=== PATIENT | male | born 1940 | race Caucasian/White ===

== ENCOUNTER 2018-09-26 10:43 | Outpatient (CLI) | payer OTHER, MEDICARE, SELFPAY ==
[2018-09-26] VITALS (8 sets, daily range): BP systolic 106–147; BP diastolic 62–77; PULSE 64–81; RESP 16; TEMP 36.5; O2SAT 96–97
--- NOTE | 2018-09-26 10:50 | DI.RAD.S_ITS ---
PROCEDURE: PAIN L INTERLAMINAR/CAUDAL INJ INDICATIONS: SPINAL STENOSIS FINDINGS: Fluoroscopic spot filming was performed to verify placement of spinal needles as labeled on the films. Appropriate location(s) of the needle tip(s) was confirmed by injection of iodinated contrast. IMPRESSION: Fluoroscopy for pain management. Dictated by: Damian Nicholas M.D. on 09/26/2018 at 12:40 Approved by: Damian Nicholas M.D. on 09/26/2018 at 12:40
[2018-09-26] MEDS: MIDAZOLAM 5 MG/5 ML VIAL IV (11:29)
[2018-09-26] MEDS: BETAMETHASONE 30 MG/5 ML MDV 12 MG INJ (11:33)
[2018-09-26] MEDS: BUPIVACAINE 0.5% (PF) VIAL 2 ML INJ (11:33)
[2018-09-26] MEDS: IOPAMIDOL 15 ML VIAL 3 ML INJ (11:33)
[2018-09-26] MEDS: DEXAMETHASONE 10 MG/ML VIAL 20 MG INJ (11:33)
--- NOTE | 2018-09-26 11:39 | PM.PROC.1 ---
Procedures Date/Time Date of procedure: 09/26/18 Time of procedure: 11:39 General Procedure description: PROVIDER: Jared Maurer DO Operative Note PREOP DIAGNOSIS 1. HNP WITH RADICULAR FEATURES, 2. MULTILEVEL CENTRAL STENOSIS, POST OP DIAGNOSIS 1. HNP WITH RADICULAR FEATURES, 2. MULTILEVEL CENTRAL STENOSIS, PROCEDURES 1. FLUORSCOPICALLY GUIDED CONTRAST CONTROLLED INTERLAMINAR EPIDURAL STEROID INJECTION - L5/S1 PHYSICIAN: Jared Maurer DO INDICATIONS [place] is referred by Dr. Shelton and Yunior for treatment of Bilateral Foraminal Stenosis L>R LE symptoms. FINDINGS Multilevel Central Spinal Stenosis with Nerve Root Compression DESCRIPTION OF PROCEDURE Fluoroscopically guided, contrast-controlled L5/S1 translaminar epidural steroid injection. Following review of allergy and review of potential side effects and complications, including, but not necessarily limited to, infection, allergic reaction, local tissue breakdown, temporary as well as permanent nerve injury, paralysis, stroke and possible , the patient indicated that the patient understood and agreed to proceed. An informed consent document was signed by the patient, witnessed by a nurse, and placed in the patient's chart. Additionally, other treatment options including modalities, medications, and physical therapy were reviewed with the patient. After review of previous anaesthesic history and IV conscious sedation the patient was deemed safe to proceed with todays procedure with IV conscious sedation as ASA class II designation. Safety time-out was performed to confirm patient ID, procedure to be performed and site of procedure. IV sedation was accomplished with a combination of 2mg of Versed administered by the RN after DO order, titrated to patient comfort during the course of the procedure while the patient remained responsive to all verbal commands. In the prone position, following sterile prep and drape of the lumbar region, the L5/S1 translaminar space was identified fluoroscopically. The skin was anesthetized via a 25-gauge, 1.5-inch needle with 1% lidocaine solution. At this point, a 22-gauge short bevel spinal needle was atraumatically introduced and advanced under fluoroscopic guidance into the region of the L5/S1 translaminar space. Depth was confirmed on lateral view. Radiological data, including multiple fluoroscopic views of the lumbar spine, reveal a spinal needle at the L5/S1 translaminar space. Lateral views then show placement of the needle in the epidural space. Subsequent views show contrast material flowing superiorly and inferiorly in the epidural space. No vascular or intrathecal uptake is observed. At this point, using loss of resistance technique with saline and air, the epidural space was entered. This was confirmed following negative aspiration with injection of approximately 1.5 cc of Isovue 200, showing excellent epidural flow without vascular or intrathecal uptake. At this point, 1 cc of 1% lidocaine solution combined with 3cc or 20mg of dexamethasone and 6mg of betamethasone was injected without incident. The patent tolerated the procedure without signs of symptoms of complications prior to transfer to the recovery area for further monitoring. The patient was then transferred to the recovery area where they were observed for an appropriate period of time after the injection. The patient reported a VAS score of 6 prior to the procedure and a post-procedure VAS of 0. Total Fluoroscopy Time: 11.8 seconds Total Conscious Sedation Time: 24min POST OP INSTRUCTIONS The patient was provided a Pain Log to continue to record their response to the target-specific procedure prior to follow-up visit with their referring physician. Additionally, specific post-injection care instructions and a contact number to our office were provided if concerns arise regarding possible complications associated with the procedure are suspected. Jared Maurer DO Complications: none
--- NOTE | 2018-09-26 11:40 | PC.NURSE ---
Pt returned awake and alert post procedure, able to move from W/C to chair with standby assist. Resumed monitoring from Serene LOMAS.
== END 2018-09-26 12:17 ==
LOC: RAD 10:49
PROVIDERS: Visit Provider Physical Medicine & Rehabilitation
DX: M51.27 Other intervertebral disc displacement, lumbosacral region (principal); M48.07 Spinal stenosis, lumbosacral region; M54.17 Radiculopathy, lumbosacral region
CPT/HCPCS: 62323; 99152; J0702; J1100; J2250; J3010

== ENCOUNTER 2019-02-08 10:20 | Outpatient (CLI) | payer OTHER, MEDICARE, SELFPAY ==
[2019-02-08] VITALS (7 sets, daily range): BP systolic 105–149; BP diastolic 60–89; PULSE 60–68; RESP 16–18; TEMP 36.1; O2SAT 96–98
--- NOTE | 2019-02-08 10:25 | DI.RAD.S_ITS ---
PROCEDURE: PAIN L INTERLAMINAR/CAUDAL INJ INDICATIONS: SPONDYLOSIS FINDINGS: Fluoroscopic spot filming was performed to verify placement of spinal needles at the L5-S1 level(s), as labeled on the films. Appropriate location(s) of the needle tip(s) was confirmed by injection of iodinated contrast. Dictated by: Tayo Lim M.D. on 02/08/2019 at 14:52 Approved by: Tayo Lim M.D. on 02/08/2019 at 14:53
[2019-02-08] MEDS: MIDAZOLAM 5 MG/5 ML VIAL IV (12:00)
[2019-02-08] MEDS: BUPIVACAINE 0.25% (PF) VIAL 2 ML INJ (12:09)
[2019-02-08] MEDS: IOPAMIDOL 15 ML VIAL 3 ML INJ (12:09)
[2019-02-08] MEDS: BETAMETHASONE 30 MG/5 ML MDV 6 MG INJ (12:09)
--- NOTE | 2019-02-08 12:13 | PC.NURSE ---
ASSISTING PT OFF TABLE AND TRANSPORTING TO POST PROC AREA IN STABLE CONDITION.
--- NOTE | 2019-02-08 12:20 | P.PCN_ITS ---
Procedures Date/Time Date of procedure: 02/08/19 Time of procedure: 12:20 General Procedure description: PREOP DIAGNOSIS 1. FORMAINAL STENOSIS WITH LE SYMPTOMS POST OP DIAGNOSIS 1. FORMAINAL STENOSIS WITH LE SYMPTOMS PROCEDURES 1. FLUOROSCOPICALLY GUIDED CONTRAST CONTROLLED TRANSFORAMINAL EPIDURAL STEROID INJECTION - Left L5/S1 PHYSICIAN: Jared Maurer DO INDICATIONS: [place] is referred by Dr. Mojica for treatment of Foraminal Stenosis with Left LE Symptoms FINDINGS Foraminal Nerve Root Compression secondary to disc disease and facet hypertrophy DESCRIPTION OF PROCEDURE: Following review of allergy and review of potential side effects and complications, including, but not necessarily limited to, infection, allergic reaction, local tissue breakdown, stroke, temporary or permanent nerve injury, paralysis, and possible , the patient indicated that the patient understood and agreed to proceed. An informed consent document was signed by the patient, witnessed by a nurse, and placed in the patient's chart. Additionally, other treatment options including medications, modalities, and physical therapy were reviewed with the patient. After review of previous anaesthesic history and IV conscious sedation the pat ient was deemed safe to proceed with todays procedure with IV conscious sedation as ASA class II designation. Safety time-out was performed to confirm patient ID, procedure to be performed and site of procedure. IV sedation was accomplished with a combination of 2mg of Versed was administered by the RN after DO order, titrated to patient comfort during the course of the procedure while the patient remained responsive to all verbal commands In the prone position following sterile prep and drape of the lumbar region, the left L5/S1 posterior neuroforamen was identified fluoroscopically. The skin was anesthetized via a 25-gauge 1.5-inch needle with 1% lidocaine solution. At this point, a 25-gauge 3.5-inch spinal needle was atraumatically introduced and advanced under fluoroscopic guidance through the posterior left L5/S1 neuroforamen to approximately the anterior aspect of the canal. Depth was confirmed on lateral view. Following negative aspiration, injection of approximately 1.5cc of Isovue 200 under live fluoroscopy in the AP view confirmed excellent flow along the nerve root, into the epidural space without vascular or intrathecal uptake observed. Radiological data, including multiple fluoroscopic views of the lumbosacral spine, reveal a spinal needle at the Left L5/S1 posterior neuroforamen. Subsequent views show flow of contrast material flowing superiorly and infe riorly along the nerve root confirming epidural flow. Subsequently, a test dose of 1.5cc of 1% lidocaine solution was administered and patient was observed for two minutes for signs or symptoms of complications, including abdominal pain, shortness of breath, bilateral upper or lower extremity weakness, nausea and vomiting, prior to steroid injection. At this point, a total of 3cc or 18mg of betamethasone was injected without incident. The procedure tolerated the procedure well without signs or symptoms of complications prior to transfer to the recovery area continued monitoring without incident. The patient was then transferred to the recovery area where they were observed for an appropriate time after the injection. The patient reported a VAS score of 7 prior to the procedure and a post-procedure VAS of 0. Total Fluoroscopy Time: 20.9 seconds Total Conscious Sedation Time: 24min POST OP INSTRUCTIONS The patient was provided a Pain Log to continue to record their response to the target-specific procedure prior to follow-up visit with their referring physician. Additionally, specific post-injection care instructions and a contact number to our office were provided if concerns arise regarding possible complications associated with the procedure are suspected. Jared Maurer DO Complications: none
== END 2019-02-08 13:05 ==
LOC: RAD 10:24
PROVIDERS: PCP Social Worker Clinical; Visit Provider Physical Medicine & Rehabilitation
DX: M48.07 Spinal stenosis, lumbosacral region (principal); M51.17 Intervertebral disc disorders with radiculopathy, lumbosacral region
CPT/HCPCS: 64483; 99152; J0702; J1100; J2250; J3010

== ENCOUNTER → 2019-10-20 11:23 | Outpatient (CLI) | payer OTHER, MEDICARE, SELFPAY ==
[2019-10-21 23:09] LABS: COVID19 Sendout Not Detected (Not Detect)
== END ==
PROVIDERS: PCP Social Worker Clinical; Visit Provider Physician Assistant
DX: Z01.812 Encounter for preprocedural laboratory examination (principal)
CPT/HCPCS: 87635

== ENCOUNTER 2019-10-23 09:05 | Outpatient (CLI) | payer OTHER, MEDICARE, SELFPAY ==
[2019-10-23] VITALS (8 sets, daily range): BP systolic 107–136; BP diastolic 62–84; PULSE 48–54; RESP 14–18; TEMP 36.3; O2SAT 96–99
--- NOTE | 2019-10-23 09:08 | DI.RAD.S_ITS ---
PROCEDURE: PAIN L/SI FACET INJ/BLK 1STL INDICATIONS: SPONDYLOSIS COMPARISON: [facility], XA, PAIN L INTERLAMINAR/CAUDAL INJ, 02/08/2019, 11:58. FINDINGS: Fluoroscopic spot filming was performed to verify placement of spinal needles at the left L4, L5 and S1 level(s), as labeled on the films. Appropriate location(s) of the needle tip(s) was confirmed by injection of iodinated contrast. IMPRESSION: Access needles at the level of the left L4, L5 and S1 nerves. Dictated by: Rylie Alejandro MD, PhD on 10/24/2019 at 12:16 Approved by: Rylie Alejandro MD, PhD on 10/24/2019 at 12:18
[2019-10-23] MEDS: MIDAZOLAM 5 MG/5 ML VIAL IV (10:34)
[2019-10-23] MEDS: BUPIVACAINE 0.5% (PF) VIAL 5 ML INJ (10:36)
[2019-10-23] MEDS: IOPAMIDOL 15 ML VIAL 3 ML INJ (10:36)
--- NOTE | 2019-10-23 10:46 | PM.PROC.IR.1 ---
Date/Time/Diagnoses Date of procedure: 10/23/19 Time of procedure: 10:46 Pre-procedure diagnosis: 1. FACET ARTHROPATHY Post-procedure diagnosis: same Procedure Notes Procedure: 1. Left L4, L5 and S1 MB BLOCKS Indications: [place] is referred by Dr. Mojica for treatment of Left Axial LBP. Physician: Jared Maurer Complications: none Procedure in detail & Post-procedure care: DESCRIPTION OF PROCEDURE Fluoroscopically guided, contrast-controlled left L4, L5 and S1 medial branch blocks with 0.5cc of 0.5% Marcaine. Following review of allergy and review of potential side effects and complications, including, but not necessarily limited to, infection, allergic reaction, local tissue breakdown, nerve injury, paralysis, stroke and possible , the patient indicated that the patient understood and agreed to proceed. An informed consent document was signed by the patient, witnessed by a nurse, and placed in the patient's chart. After review of previous anaesthesic history and IV conscious sedation the patient was deemed safe to proceed with today?s procedure with IV conscious sedation as ASA class II designation. Safety time-out was performed to confirm patient ID, procedure to be performed and site of procedure. IV sedation was accomplished with a combination of 2mg of Versed was administered by the RN after DO order, titrated to patient comfort during the course of the procedure while the patient remained responsive to all verbal commands. In the prone position, following sterile prep and drape of the lumbar region, the left L4, L5 and S1 anatomical location of the medial branch of the dorsal ramus was identified fluoroscopically. Subsequently an anesthetic skin wheal using 1% lidocaine solution was initiated at each of the anatomical spots. Subsequently then a 22-gauge 3.5-inch spinal needle was atraumatically introduced and advanced under fluoroscopic guidance at each of the corresponding sites at the left L4, L5 and S1 MB. After negative aspiration, 0.2cc of Isovue 200 was injected, confirming placement without vascular or intrathecal uptake. Subsequently then 0.5cc of 0.5% Marcaine solution was injected at each of the corresponding sites at the left L4, L5 and S1 medial branch locations. The patient tolerated the procedure well without signs or symptoms of complications. The patient tolerated the procedure well without signs or symptoms of complications prior to transfer to the recovery area continued monitoring without incident. Post-procedure, the patient was monitored initiating provocative activities to measure the amount of relief from block of the facetogenic pain. The patient reported a VAS of 7 prior to the procedure and a post-procedure VAS of 1. It has been a pleasure to assist in the diagnostic and therapeutic care of your patient. POST OP INSTRUCTIONS The patient was provided with a Pain Log to complete over the next several hours and subsequent days prior to the patient's follow up with the ordering physician. If the patient has pediatric registered nurse relief to the solution applied, then they may be a candidate for medial branch rhizotomy. The patient is aware, was provided, once again, with a Pain Log and will follow up with the referring physician for review and clinical correlation.
--- NOTE | 2019-10-23 12:00 | PC.NURSE ---
1059: Pt returned to pre proc room by wc. Max 2 PA from wc to chair r/t Parkinsons. Monitoring resumed per protocol
--- NOTE | 2019-10-23 16:04 | PC.NURSE ---
Pt tolerated procedure well. Vitals stable upon transfer to post procedure room. Report given to ABEBE Singletary. Versed given by ABEBE Irving. All other meds given by Dr. Maurer.
== END 2019-10-23 11:21 | disposition home or self-care (01) ==
LOC: RAD 09:07
PROVIDERS: PCP Social Worker Clinical; Referring Provider Physical Medicine & Rehabilitation; Visit Provider Physical Medicine & Rehabilitation
DX: M47.816 Spondylosis without myelopathy or radiculopathy, lumbar region (principal); M47.817 Spondylosis without myelopathy or radiculopathy, lumbosacral region; M54.5 Low back pain
CPT/HCPCS: 64493; 64494; 99152; J2250; J3010

== ENCOUNTER → 2019-12-15 11:45 | Outpatient (CLI) | payer OTHER, MEDICARE, SELFPAY ==
[2019-12-17 11:49] LABS: COVID19 Sendout Not Detected (Not Detect)
== END ==
PROVIDERS: PCP Social Worker Clinical; Visit Provider Nurse Practitioner
DX: Z11.59 Encounter for screening for other viral diseases (principal)
CPT/HCPCS: 87635

== ENCOUNTER 2019-12-18 10:50 | Outpatient (CLI) | payer OTHER, MEDICARE, SELFPAY ==
[2019-12-18] VITALS (9 sets, daily range): BP systolic 122–153; BP diastolic 61–101; PULSE 71–81; RESP 13–20; TEMP 36.2; O2SAT 95–99
--- NOTE | 2019-12-18 10:53 | DI.RAD.S_ITS ---
PROCEDURE: PAIN L/S TRANSFORAMINAL INJECT INDICATIONS: SPONDYLOSIS COMPARISON: [facility], XA, PAIN L/SI FACET INJ/BLK 1STL, 10/23/2019, 9:34. [facility], XA, PAIN L INTERLAMINAR/CAUDAL INJ, 02/08/2019, 11:58. [facility], XA, PAIN L INTERLAMINAR/CAUDAL INJ, 09/26/2018, 11:32. Fluoroscopic spot filming was performed to verify placement of a spinal needle at the L5-S1 level on the right, as labeled on the films. Appropriate location of the needle tip was confirmed by injection of iodinated contrast. IMPRESSION: No significant intraprocedural abnormality. Dictated by: Xander Stephen M.D. on 12/18/2019 at 13:57 Approved by: Xander Stephen M.D. on 12/18/2019 at 13:58
[2019-12-18] MEDS: MIDAZOLAM 5 MG/5 ML VIAL IV (11:37)
[2019-12-18] MEDS: BETAMETHASONE 30 MG/5 ML MDV 6 MG INJ (11:45)
[2019-12-18] MEDS: BUPIVACAINE 0.25% (PF) VIAL 2 ML INJ (11:45)
[2019-12-18] MEDS: DEXAMETHASONE 10 MG/ML VIAL 20 MG INJ (11:45)
[2019-12-18] MEDS: IOPAMIDOL 15 ML VIAL 3 ML INJ (11:45)
--- NOTE | 2019-12-18 11:59 | P.PCN_ITS ---
Date/Time/Diagnoses Date of procedure: 12/18/19 Time of procedure: 11:59 Pre-procedure diagnosis: 1. FORAMINAL STENOSIS WITH LE SYMPTOMS Post-procedure diagnosis: same Procedure Notes Procedure: 1. FLUOROSCOPICALLY GUIDED CONTRAST CONTROLLED TRANSFORAMINAL EPIDURAL STEROID INJECTION - RIGHT L5/S1 TFESI Indications: [place] is referred by Dr. Mojica for treatment of Foraminal Stenosis with right LE Symptoms Physician: Jared Maurer Total Fluoroscopy time (seconds): 7 Total sedation minutes: 9 Complications: none Procedure in detail & Post-procedure care: FINDINGS Foraminal Nerve Root Compression secondary to disc disease and facet hypertrophy DESCRIPTION OF PROCEDURE Following review of allergy and review of potential side effects and complications, including, but not necessarily limited to, infection, allergic reaction, local tissue breakdown, stroke, temporary or permanent nerve injury, paralysis, and possible , the patient indicated that the patient understood and agreed to proceed. An informed consent document was signed by the patient, witnessed by a nurse, and placed in the patient's chart. Additionally, other treatment options including medications, modalities, and physical therapy were reviewed with the patient. After review of previous anaesthesic history and IV conscious sedation the patient was deemed safe to proceed with today?s procedure with IV conscious sedation as ASA class II designation. Safety time-out was performed to confirm patient ID, procedure to be performed and site of procedure. IV sedation was accomplished with a combination of 1mg of Versed was administered by the RN after DO order, titrated to patient comfort during the course of the procedure while the patient remained responsive to all verbal commands In the prone position following sterile prep and drape of the lumbar region, the right L5/S1 posterior neuroforamen was identified fluoroscopically. The skin was anesthetized via a 25-gauge 1.5-inch needle with 1% lidocaine solution. At this point, a 25-gauge 3.5-inch spinal needle was atraumatically introduced and advanced under fluoroscopic guidance through the posterior right L5/S1 neuroforamen to approximately the anterior aspect of the canal. Depth was confirmed on lateral view. Following negative aspiration, injection of approximately 1.5cc of Isovue 200 under live fluoroscopy in the AP view co nfirmed excellent flow along the nerve root, into the epidural space without vascular or intrathecal uptake observed Radiological data, including multiple fluoroscopic views of the lumbosacral spin e, reveal a spinal needle at the right L5/S1 posterior neuroforamen. Subsequent views show flow of contrast material flowing superiorly and inferiorly along the nerve root confirming epidural flow. Subsequently, a test dose of 1.5cc of 1% lidocaine solution was administered and patient was observed for two minutes for signs or symptoms of complications, including abdominal pain, shortness of breath, bilateral upper or lower extremity weakness, nausea and vomiting, prior to steroid injection. At this point, a total of 3cc or 20mg of dexamethasone and 6mg betamethasone was injected without incident. The procedure tolerated the procedure well without signs or symptoms of complications prior to transfer to the recovery area continued monitoring without incident. The patient was then transferred to the recovery area where they were observed for an appropriate time after the injection. The patient reported a VAS score of 7 prior to the procedure and a post-procedure VAS of 0. POST OP INSTRUCTIONS The patient was provided a Pain Log to continue to record their response to the target-specific procedure prior to follow-up visit with their referring physi funmilayo. Additionally, specific post-injection care instructions and a contact number to our office were provided if concerns arise regarding possible complications associated with the procedure are suspected.
== END 2019-12-18 12:15 | disposition home or self-care (01) ==
PROVIDERS: PCP Social Worker Clinical; Referring Provider Physical Medicine & Rehabilitation; Visit Provider Physical Medicine & Rehabilitation
DX: M48.07 Spinal stenosis, lumbosacral region (principal); M51.17 Intervertebral disc disorders with radiculopathy, lumbosacral region
CPT/HCPCS: 64483; J0702; J1100; J2250; J3010

== ENCOUNTER → 2020-03-12 09:36 | Outpatient (CLI) | payer OTHER, MEDICARE, SELFPAY ==
--- NOTE | 2020-03-12 09:38 | DI.RAD.S_ITS ---
PROCEDURE: XR LUMBAR SPINE MIN 4V INDICATIONS: UPDATE IMAGING TECHNIQUE: 5 views of the lumbar spine acquired. COMPARISON: [facility], MRI L-SPINE W/O CONTRAST, 07/13/2018, 7:01. [facility], XR L-SPINE 2-3V, 07/28/2016, 16:31. [facility], [facility], XR L-SPINE 4-6V, 05/22/2018, 16:47. FINDINGS: Bones: 5 nonrib-bearing vertebrae are present. Moderate levo scoliosis centered at the L3 level. Left posterior/interbody fusion again noted at the C3-C4 level with hardware in expected unchanged positions. Multilevel disc degeneration redemonstrated, severe at the L4-L5 and L5-S1 levels. Moderate L4-L5 and L5-S1 facet joint arthropathy. Bones are osteopenic. No vertebral body compression fractures. No suspicious bony lesions. Soft tissues: Overlying bowel gas pattern is normal. No suspicious soft tissue calcifications. IMPRESSION: 1. Stable postsurgical changes at the L4-L5 level and multilevel spondylosis. Dictated by: Rajiv CORNELL Interpreted: Alexa Centeno MD on 03/12/2020 at 10:16 Approved by: Alexa Centeno M.D. on 03/12/2020 at 16:58
== END ==
PROVIDERS: PCP Social Worker Clinical; Referring Provider Physical Medicine & Rehabilitation; Visit Provider Physical Medicine & Rehabilitation
DX: M47.26 Other spondylosis with radiculopathy, lumbar region (principal); M47.27 Other spondylosis with radiculopathy, lumbosacral region; M41.25 Other idiopathic scoliosis, thoracolumbar region; G20 Parkinson's disease; Z98.1 Arthrodesis status; Z96.21 Cochlear implant status
CPT/HCPCS: 72110; 99214